=== PATIENT | female | born 1990 | race Native Hawaiian/Other Pacific Islander ===

== ENCOUNTER 2016-08-06 12:36 | Emergency (ER) | payer OTHER ==
[2016-08-06] MEDS ORDERED: AUGMENTIN 875 MG TAB As Ordered ONE (13:19)
[2016-08-06] MEDS ORDERED: IBUPROFEN 800 MG TAB As Ordered ONE (13:19)
[2016-08-06] MEDS ORDERED: ACETAMINOPHEN 325 MG TAB As Ordered ONE (13:19)
--- NOTE | 2016-08-06 13:39 | EDDOCDS ---
Physician Documentation [facility] Name: Billie Kat Age: 25 yrs Sex: Female : 1990 Arrival Date: 08/06/2016 Time: 12:36 Bed Triage 1 Private [place] [facility] [place]position: 08/06/16 13:32 Discharged to Home/Self Care. Impression: Streptococcal pharyngitis. - Condition is Stable. - Discharge Instructions: Strep Throat, [id number]. - Prescriptions for Augmentin 875- 125 mg Oral Tablet - take 1 tablet by ORAL route every 12 hours for 10 days; 20 tablet. Ibuprofen 800 mg Oral Tablet - take 1 tablet by ORAL route every 8 hours As needed take with food; 30 tablet. Tylenol 325 mg Oral Tablet - take 2 tablets by ORAL route every 6 hours as needed; 30 tablet. - Medication Reconciliation, Local Pharmacy Hours form. - [place] [facility] [place]; When: 1 - 2 days; Reason: Recheck today's complaints, Continuance of care. Follow up: Emergency Department; Reason: Worsening of conditions. - Problem is new. - Symptoms have improved. Historical: - Allergies: no known allergies; - Home Meds: 1. BCP once daily - PMHx: none; - PSHx: none; - Social history: Smoking status: Patient states was never smoker of tobacco. No barriers to communication noted, The patient speaks fluent Cymraes. - Family history: Not pertinent. - : The pt / caregiver states he / she is not on anticoagulants. Home medication list is obtained from the patient. - Exposure Risk Screening:: None identified. 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 1 in. (154.94 cm) (R); Pain 4/10; 12:37 Body Mass Index 26.45 (63.50 kg, 154.94 cm) ct3 MDM: 13:03 Strep Screen, Nursing ordered. ef1 13:17 Amoxicillin-Clavulanate 875 mg 1 tabs PO once ordered. ef1 13:17 Acetaminophen Tablet 975 mg PO once ordered. ef1 13:17 Ibuprofen 800 mg PO once ordered. ef1 13:17 Fluid Challenge ordered. ef1 Administered Medications: 13:21 Drug: Amoxicillin-Clavulanate 1 tabs [amoxicillin 875 mg-potassium clavulanate 125 mg ck1 tablet (1 tabs)] Route: PO; 13:21 Drug: Acetaminophen 975 mg [acetaminophen 325 mg tablet (3 tabs)] Route: PO; ck1 13:21 Drug: Ibuprofen 800 mg [ibuprofen 800 mg tablet (1 tabs)] Route: PO; ck1 Signatures: Dottie Hoang,RN RN ck1 Evelina Ziegler PA-C PAKishan ef1 Bree Oliveros RN RN rs3 MTDD
--- NOTE | 2016-08-06 13:39 | EDDOCDS ---
[facility] Name: Billie Kat Age: 25 yrs Sex: Female : 1990 Arrival Date: 08/06/2016 Time: 12:36 Bed Triage 1 Private MD: JUAN Cao Diagnosis: Streptococcal pharyngitis Presentation: 08/06 12:38 Presenting complaint: Patient states: fever, chills and shakiness started around 11 am. rs3 taken Advil this morning. denies nausea/vomiting/diarrhea. Adult Sepsis Screening: The patient does not have new or worsening altered mentation. Patient's respiratory rate is less than 22. Systolic blood pressure is greater than 100. Patient has a qSOFA score of 0- Negative Sepsis Screen. Suicide/Homicide risk assessment- the patient denies having any suicidal and/or homicidal ideations and does not present with any other emotional, behavioral or mental health complaints. Status: The patient is a dependent. Transition of care: patient was not received from another setting of care. 12:38 Acuity: LIVIA Level 3 rs3 12:38 Method Of Arrival: Walkin/Carried/Asstd rs3 Triage Assessment: 12:41 General: Appears in no apparent distress. Pain: Denies pain. Pt Declines HIV testing. 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 BCP once daily - PMHx: none; - PSHx: none; - Social history: Smoking status: Patient states was never smoker of tobacco. No barriers to communication noted, The patient speaks fluent Brazilian. - Family history: Not pertinent. - : The pt / caregiver states he / she is not on anticoagulants. Home medication list is obtained from the patient. - Exposure Risk Screening:: None identified. Screenin:14 Screening information is obtained from the patient. Fall risk: No risks identified. ck1 Assistance ADL's: requires no assistance with activities of daily living. Abuse/DV Screen: The patient / caregiver reports he/she is: not in a situation that causes fear, pain or injury. Nutritional screening: No deficits noted. Advance Directives: Currently, there is no health care proxy. home support is adequate. Assessment: 13:14 General: Appears in no apparent distress, comfortable, Behavior is appropriate for age, ck1 cooperative. Pain: Location: head Pain currently is 4 out of 10 on a pain scale. Quality of pain is described as aching. Neurological: Level of Consciousness is awake, alert, obeys commands, Oriented to person, place, time. Respiratory: Respiratory effort is unlabored, Respiratory pattern is regular, symmetrical. GI: Reports nausea. Derm: Skin is pink, warm & dry. Vital Signs: 12:37 BP 104 / 50; Pulse 123; Resp 18; Temp 101.9(O); Pulse Ox 99% on R/A; Weight 63.5 kg ct3 (R); Height 5 ft. 1 in. (154.94 cm) (R); Pain 4/10; 12:37 Body Mass Index 26.45 (63.50 kg, 154.94 cm) ct3 Vitals: 12:37 Log In Time: August 06, 2016 at 12:35. ct3 13:13 Strep Screen is obtained and tested: Positive. jo3 ED Course: 12:37 Patient visited by Amita Gee PCA. ct3 12:37 ANUJ Cao is Private Physician. ct3 12:37 Patient moved to Waiting ct3 12:38 Patient moved to Pre RCE ct3 12:40 Triage Initiated rs3 12:57 Patient moved to Triage 1 jb5 13:02 Evelina Ziegler PA-C is PHCP. ef1 13:03 Brennen Will MD is Attending Physician. ef1 13:03 Patient visited by Evelina Ziegler PA-C. ef1 13:14 The patient / caregiver is instructed regarding the plan of care and ED course. ck1 13:14 No IV's were initiated during this patient's visit. No procedures done that require ck1 assistance. 13:21 Patient visited by Dottie Hoang RN. ck1 13:32 JUAN Cao is Referral Physician. ef1 Administered Medications: 13:21 Drug: Amoxicillin-Clavulanate 1 tabs [amoxicillin 875 mg-potassium clavulanate 125 mg ck1 tablet (1 tabs)] Route: PO; 13:21 Drug: Acetaminophen 975 mg [acetaminophen 325 mg tablet (3 tabs)] Route: PO; ck1 13:21 Drug: Ibuprofen 800 mg [ibuprofen 800 mg tablet (1 tabs)] Route: PO; ck1 Order Results: There are currently no results for this order. Outcome: 13:32 Discharge ordered by Provider. ef1 13:38 Discharge Assessment: Patient awake, alert and oriented x 3. No cognitive and/or ck1 functional deficits noted. Patient verbalized understanding of disposition instructions. patient administered narcotics - no. The following High Risk Discharge criteria are identified: None. Discharged to home ambulatory, with significant other. Condition: stable. Discharge instructions given to patient, Instructed on discharge instructions, follow up and referral plans. medication usage, Demonstrated understanding of instructions, medications, Pt was receptive of discharge instructions/ teaching. Prescriptions given X 3. No special radiology studies were completed. Property :Personal belongings accompany Pt. 13:38 Patient left the ED. ck1 Signatures: Dottie Hoang,RN RN ck1 Reyna Davis, EXTRUSION DIE REPAIR MANAGER EXTRUSION DIE REPAIR MANAGER jb5 Farhana Monique RN RN jo3 Evelina Ziegler, PA-C PA-C ef1 Bree Oliveros RN RN rs3 Amita Gee, EXTRUSION DIE REPAIR MANAGER EXTRUSION DIE REPAIR MANAGER ct3 PAULAD
--- NOTE | 2016-08-08 14:39 | EDDOCDS ---
Physician Documentation [facility] Name: Billie Kat Age: 25 yrs Sex: Female : 1990 Arrival Date: 08/06/2016 Time: 12:36 Bed Triage 1 Private MD: Kiley [facility] [place] Disposition: 08/06/16 13:32 Discharged to Home/Self Care. Impression: Streptococcal pharyngitis. - Condition is Stable. - Discharge Instructions: Strep Throat, [id number]. - Prescriptions for Augmentin 875- 125 mg Oral Tablet - take 1 tablet by ORAL route every 12 hours for 10 days; 20 tablet. Ibuprofen 800 mg Oral Tablet - take 1 tablet by ORAL route every 8 hours As needed take with food; 30 tablet. Tylenol 325 mg Oral Tablet - take 2 tablets by ORAL route every 6 hours as needed; 30 tablet. - Medication Reconciliation, Local Pharmacy Hours form. - Follow up: [facility] [place]; When: 1 - 2 days; Reason: Recheck today's complaints, Continuance of care. Follow up: Emergency Department; Reason: Worsening of conditions. - Problem is new. - Symptoms have improved. Historical: - Allergies: no known allergies; - Home Meds: 1. BCP once daily - PMHx: none; - PSHx: none; - Social history: Smoking status: Patient states was never smoker of tobacco. No barriers to communication noted, The patient speaks fluent Bolivian. - Family history: Not pertinent. - : The pt / caregiver states he / she is not on anticoagulants. Home medication list is obtained from the patient. - Exposure Risk Screening:: None identified. 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 1 in. (154.94 cm) (R); Pain 4/10; 12:37 Body Mass Index 26.45 (63.50 kg, 154.94 cm) ct3 MDM: 13:03 Strep Screen, Nursing ordered. ef1 13:17 Amoxicillin-Clavulanate 875 mg 1 tabs PO once ordered. ef1 13:17 Acetaminophen Tablet 975 mg PO once ordered. ef1 13:17 Ibuprofen 800 mg PO once ordered. ef1 13:17 Fluid Challenge ordered. ef1 13:42 [facility] [place] Payment Agreement was scanned into [employer] and attached to record. jp5 13:42 Financial registration complete. jp5 15:31 T-Sheet-- Draft Copy was scanned into [employer] and attached to record. gb Administered Medications: 13:21 Drug: Amoxicillin-Clavulanate 1 tabs [amoxicillin 875 mg-potassium clavulanate 125 mg ck1 tablet (1 tabs)] Route: PO; 13:21 Drug: Acetaminophen 975 mg [acetaminophen 325 mg tablet (3 tabs)] Route: PO; ck1 13:21 Drug: Ibuprofen 800 mg [ibuprofen 800 mg tablet (1 tabs)] Route: PO; ck1 Signatures: Cesia Calhoun, Reg Reg gb Dottie HoangRN RN ck1 Evelina Ziegler PA-C PAKishan ef1 Bree OliverosRN RN rs3 Soto Gonsalez jp5 The chart was reviewed and I authenticate all verbal orders and agree with the evaluation and treatment provided.Attachments: 13:42 [facility] Payment Agreement jp5 15:31 T-Sheet-- Draft Copy gb Chart Complete MTDD
--- NOTE | 2016-08-08 14:39 | EDDOCDS ---
Physician Documentation [facility] Name: Billie Kat Age: 25 yrs Sex: Female : 1990 Arrival Date: 08/06/2016 Time: 12:36 Bed Triage 1 Private MD: [place] [facility] [place] Disposition: 08/06/16 13:32 Discharged to Home/Self Care. Impression: Streptococcal pharyngitis. - Condition is Stable. - Discharge Instructions: Strep Throat, [id number]. - Prescriptions for Augmentin 875- 125 mg Oral Tablet - take 1 tablet by ORAL route every 12 hours for 10 days; 20 tablet. Ibuprofen 800 mg Oral Tablet - take 1 tablet by ORAL route every 8 hours As needed take with food; 30 tablet. Tylenol 325 mg Oral Tablet - take 2 tablets by ORAL route every 6 hours as needed; 30 tablet. - Medication Reconciliation, Local Pharmacy Hours form. - Follow up: [facility] [place]; When: 1 - 2 days; Reason: Recheck today's complaints, Continuance of care. Follow up: Emergency Department; Reason: Worsening of conditions. - Problem is new. - Symptoms have improved. Historical: - Allergies: no known allergies; - Home Meds: 1. BCP once daily - PMHx: none; - PSHx: none; - Social history: Smoking status: Patient states was never smoker of tobacco. No barriers to communication noted, The patient speaks fluent Guyanese. - Family history: Not pertinent. - : The pt / caregiver states he / she is not on anticoagulants. Home medication list is obtained from the patient. - Exposure Risk Screening:: None identified. 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 1 in. (154.94 cm) (R); Pain 4/10; 12:37 Body Mass Index 26.45 (63.50 kg, 154.94 cm) ct3 MDM: 13:03 Strep Screen, Nursing ordered. ef1 13:17 Amoxicillin-Clavulanate 875 mg 1 tabs PO once ordered. ef1 13:17 Acetaminophen Tablet 975 mg PO once ordered. ef1 13:17 Ibuprofen 800 mg PO once ordered. ef1 13:17 Fluid Challenge ordered. ef1 13:42 [place] [place] Payment Agreement was scanned into [employer] and attached to record. jp5 13:42 Financial registration complete. jp5 15:31 T-Sheet-- Draft Copy was scanned into [employer] and attached to record. gb Administered Medications: 13:21 Drug: Amoxicillin-Clavulanate 1 tabs [amoxicillin 875 mg-potassium clavulanate 125 mg ck1 tablet (1 tabs)] Route: PO; 13:21 Drug: Acetaminophen 975 mg [acetaminophen 325 mg tablet (3 tabs)] Route: PO; ck1 13:21 Drug: Ibuprofen 800 mg [ibuprofen 800 mg tablet (1 tabs)] Route: PO; ck1 Signatures: Cesia Calhoun, Reg Reg gb Dottie HoangRN RN ck1 Evelina Ziegler PA-C PAKishan ef1 Bree OliverosRN RN rs3 Soto Gonsalez jp5 The chart was reviewed and I authenticate all verbal orders and agree with the evaluation and treatment provided.Attachments: 13:42 [facility] Payment Agreement jp5 15:31 T-Sheet-- Draft Copy gb Chart Complete MTDD
--- NOTE | 2016-08-08 14:39 | EDDOCDS ---
Nurse's Notes [facility] Name: Billie Kat Age: 25 yrs Sex: Female : 1990 Arrival Date: 08/06/2016 Time: 12:36 Bed Triage 1 Private MD: JUAN Cao Diagnosis: Streptococcal pharyngitis Presentation: 08/06 12:38 Presenting complaint: Patient states: fever, chills and shakiness started around 11 am. rs3 taken Advil this morning. denies nausea/vomiting/diarrhea. Adult Sepsis Screening: The patient does not have new or worsening altered mentation. Patient's respiratory rate is less than 22. Systolic blood pressure is greater than 100. Patient has a qSOFA score of 0- Negative Sepsis Screen. Suicide/Homicide risk assessment- the patient denies having any suicidal and/or homicidal ideations and does not present with any other emotional, behavioral or mental health complaints. Status: The patient is a dependent. Transition of care: patient was not received from another setting of care. 12:38 Acuity: LIVIA Level 3 rs3 12:38 Method Of Arrival: Walkin/Carried/Asstd rs3 Triage Assessment: 12:41 General: Appears in no apparent distress. Pain: Denies pain. Pt Declines HIV testing. 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 BCP once daily - PMHx: none; - PSHx: none; - Social history: Smoking status: Patient states was never smoker of tobacco. No barriers to communication noted, The patient speaks fluent Grenadian. - Family history: Not pertinent. - : The pt / caregiver states he / she is not on anticoagulants. Home medication list is obtained from the patient. - Exposure Risk Screening:: None identified. Screenin:14 Screening information is obtained from the patient. Fall risk: No risks identified. ck1 Assistance ADL's: requires no assistance with activities of daily living. Abuse/DV Screen: The patient / caregiver reports he/she is: not in a situation that causes fear, pain or injury. Nutritional screening: No deficits noted. Advance Directives: Currently, there is no health care proxy. home support is adequate. Assessment: 13:14 General: Appears in no apparent distress, comfortable, Behavior is appropriate for age, ck1 cooperative. Pain: Location: head Pain currently is 4 out of 10 on a pain scale. Quality of pain is described as aching. Neurological: Level of Consciousness is awake, alert, obeys commands, Oriented to person, place, time. Respiratory: Respiratory effort is unlabored, Respiratory pattern is regular, symmetrical. GI: Reports nausea. Derm: Skin is pink, warm & dry. Vital Signs: 12:37 BP 104 / 50; Pulse 123; Resp 18; Temp 101.9(O); Pulse Ox 99% on R/A; Weight 63.5 kg ct3 (R); Height 5 ft. 1 in. (154.94 cm) (R); Pain 4/10; 12:37 Body Mass Index 26.45 (63.50 kg, 154.94 cm) ct3 Vitals: 12:37 Log In Time: August 06, 2016 at 12:35. ct3 13:13 Strep Screen is obtained and tested: Positive. jo3 ED Course: 12:37 Patient visited by Amita Gee PCA. ct3 12:37 [facility] is Private Physician. ct3 12:37 Patient moved to Waiting ct3 12:38 Patient moved to Pre RCE ct3 12:40 Triage Initiated rs3 12:57 Patient moved to Triage 1 jb5 13:02 Evelina Ziegler PA-C is PHCP. ef1 13:03 Brennen Will MD is Attending Physician. ef1 13:03 Patient visited by Evelina Ziegler PA-C. ef1 13:14 The patient / caregiver is instructed regarding the plan of care and ED course. ck1 13:14 No IV's were initiated during this patient's visit. No procedures done that require ck1 assistance. 13:21 Patient visited by Dottie Hoang RN. ck1 13:32 [facility] is Referral Physician. ef1 13:42 [place] [place] was scanned into [employer] and attached to record. jp5 15:18 Patient name changed from Billie\S\\S\Pile\S\ to Billie\S\Parry\S\Pile. EDMS 15:31 T-Sheet-- Draft Copy was scanned into [employer] and attached to record. gb Administered Medications: 13:21 Drug: Amoxicillin-Clavulanate 1 tabs [amoxicillin 875 mg-potassium clavulanate 125 mg ck1 tablet (1 tabs)] Route: PO; 13:21 Drug: Acetaminophen 975 mg [acetaminophen 325 mg tablet (3 tabs)] Route: PO; ck1 13:21 Drug: Ibuprofen 800 mg [ibuprofen 800 mg tablet (1 tabs)] Route: PO; ck1 Order Results: There are currently no results for this order. Outcome: 13:32 Discharge ordered by Provider. ef1 13:38 Discharge Assessment: Patient awake, alert and oriented x 3. No cognitive and/or ck1 functional deficits noted. Patient verbalized understanding of disposition instructions. patient administered narcotics - no. The following High Risk Discharge criteria are identified: None. Discharged to home ambulatory, with significant other. Condition: stable. Discharge instructions given to patient, Instructed on discharge instructions, follow up and referral plans. medication usage, Demonstrated understanding of instructions, medications, Pt was receptive of discharge instructions/ teaching. Prescriptions given X 3. No special radiology studies were completed. Property :Personal belongings accompany Pt. 13:38 Patient left the ED. ck1 Signatures: Dispatcher [employer] EDMS Cesia Calhoun, Reg Reg gb Dottie Hoang,RN RN ck1 Reyna Davis, HAND PLEATER HAND PLEATER jb5 Farhana Monique RN RN anne marie3 Evelina Ziegler, PA-C PA-C ef1 Bree Oliveros RN RN rs3 Amita Gee, HAND PLEATER HAND PLEATER ct3 Soto Gonsalez jp5 Chart Complete MTDD
== END 2016-08-06 13:38 | disposition home or self-care (01) ==
LOC: M ED 12:36
DX: J02.0 Streptococcal pharyngitis (principal); R50.9 Fever, unspecified; R51 Headache; Z79.3 Long term (current) use of hormonal contraceptives